=== PATIENT | female | born 1965 | race Hispanic/Latino ===

== ENCOUNTER 2023-05-29 06:11 | Day surgery (SDC) | payer MEDICARE ==
[2023-05-28 09:55] LABS: Potassium 5.3 mEq/L (3.5-5.1)
--- NOTE | 2023-05-28 17:00 | EKG ---
Test Date: 2023-05-28 Test Time: 08:54:35 Rn Home Health: [facility] MEASUREMENT RESULTS: Intervals: Rate: 73 NC: 188 QRSD: 138 QT: 452 QTc: 497 [place]: P: 65 NC: 188 QRS: -34 T: 90 INTERPRETIVE STATEMENTS: Normal sinus rhythm Left axis deviation Right bundle branch block Abnormal ECG No previous ECG available for comparison Electronically Signed On 05-28-23 16:59:57 CDT by Barber Castillo
[2023-05-29] MEDS ORDERED: NA CHLORIDE 0.9% 500 ML ONE ×2 (06:50→07:35)
[2023-05-29] MEDS ORDERED: BUPIVACAINE 0.25% PF 30 ML VIAL ONE (07:09)
[2023-05-29] MEDS ORDERED: propofoL 200 MG/20 ML VIAL IV ONE ×2 (07:15→08:07)
[2023-05-29] MEDS ORDERED: MIDAZOLAM HCL 2 MG/2 ML INJ ONE (07:15)
[2023-05-29] MEDS ORDERED: LIDOCAINE 2% MPF 5 ML VIAL ONE (07:15)
[2023-05-29] MEDS ORDERED: FENTANYL CITR 100 MCG/2 ML ONE (07:15)
[2023-05-29] MEDS ORDERED: LIDOCAINE HCL/EPINEPHRINE 20 ML MDV ONE (07:21)
--- NOTE | 2023-05-29 08:08 | P.OP ---
Preoperative diagnosis: Removal of Tunnelled RIGHT IJ HD Catheter Postoperative diagnosis: Removal of Tunnelled RIGHT IJ HD Catheter Primary procedure: Removal of Tunnelled RIGHT IJ HD Catheter Anesthesia: MAC + Local Estimated blood loss: <5cc Specimen: Cath for ID only Findings: Tunneled RIGHT IJ HD cath Complications: None Transferred to: Recovery Room Condition: Good
[2023-05-29 09:42] VITALS: TEMP 97.8; O2SAT 100
[2023-05-29 09:44] VITALS: BP 170/63
--- NOTE | 2023-05-29 12:54 | OP ---
Date of Procedure: 05/29/2023 Surgeon: Lul Calvin MD, Preoperative Diagnosis: Removal of tunneled hemodialysis catheter. Postoperative Diagnosis: Removal of tunneled hemodialysis catheter. Procedure Performed: Removal of tunneled right internal jugular tunneled hemodialysis catheter. Anesthesia: MAC plus local with 0.25% Marcaine. Estimated Blood Loss: Less than 5 cc. Specimen: Catheter for ID only. Findings: Tunneled right internal jugular hemodialysis catheter noted. Complications: None. Disposition: The patient was transferred to the recovery room in good condition. Procedure In Detail: After informed consent was obtained, the patient was brought to the operating r oom, prepped and draped in the usual sterile fashion after adequate anesthesia was achieved. The pat ient was placed in steep Trendelenburg position. I removed the previously placed stitches on the rig ht chest wall without incident or complication. I then tunneled around the insertion site of a right internal jugular tunneled hemodialysis catheter, which was in the infraclavicular position _ site. I brought the cuff into view and circumferentially dissected the cuff free from the surround ing tissues using a combination of electrocautery, sharp dissection, and blunt dissection. The chikis ter was then held pressure at both the insertion site and removal site, and the catheter was removed, sent off for ID at this point. The patient was then positioned in the head up position. The area w as copiously irrigated and closed with interrupted 3-0 nylon sutures and a sterile dressing placed ov er top. The patient tolerated the procedure well without evidence of complication and transferred to PACU in good condition. All counts were correct at the end of the case. MELVIN/DAY Voice ID: [id number] Report ID: [id number]
== END 2023-05-29 08:45 | disposition home or self-care (01) ==
LOC: OR 06:11
PROVIDERS: ATTEND Surgery
PROC: 0WPG03Z Removal of Infusion Device from Peritoneal Cavity, Open Approach (ICD-10-PCS; principal; 2023-05-29 08:00)
DX: Z45.2 Encounter for adjustment and management of vascular access device (principal)
CPT/HCPCS: 93005; 80048; 36415; 82947; 88300; 36590; J2704 ×2; J2001; J2250; J7040 ×2; J3010

== ENCOUNTER → 2023-11-14 | Emergency (ER) | payer OTHER ==
[~2023-11-14] MED LIST: ACETAMINOPHEN 500 MG TAB ONE; ASPIRIN 81 MG CHEWABLE TABLET ONE; BISACODYL 10 MG RECTAL SUPP ONE; LACTULOSE 20 GM/30 ML UCUP ONE; MORPHINE 4 MG/ML SYR ONE; NA CHLORIDE 0.9% 1,000 ML ONE; ONDANSETRON 4 MG/2 ML VIAL ONE; PROMETHAZINE INJ 25 MG/ML AMP ONE; cloNIDine HCL 0.1 MG TAB ONE
[2023-11-14 17:46] LABS: Absolute Lymphocytes (CBC) 2.4 K/uL (0.7-4.9); Hematocrit 41.1 % (36.0-45.0); Lymphocytes % 21.6 % (15.3-44.8); MCV 95.3 fL (80-100); MPV 9.5 fL (7.6-11.3); Platelets 290 thou/uL (152-406); RBC Red Blood Cell Count 4.31 M/uL (3.86-4.86)
[2023-11-14 18:06] LABS: Protime INR 1.05
[2023-11-14 18:35] LABS: Albumin 2.8 g/dL (3.4-5.0); Bilirubin Direct 0.2 mg/dL (0-0.2); Bilirubin Indirect, Calculated 0.2 mg/dL (0.2-0.8); Bilirubin Total 0.4 mg/dL (0.2-1.0); Magnesium 1.6 mg/dL (1.6-2.4); Potassium 4.3 mEq/L (3.5-5.1); Protein, Total 7.6 g/dL (6.4-8.2); Troponin High Sensitivity 13.2 pg/mL (<58.9)
[2023-11-14 18:38] LABS: SARS-CoV-2 Antigen Rapid Res Negative (Negative)
--- NOTE | 2023-11-14 19:11 | RAD REPORT ---
EXAM DESCRIPTION: Camryn Single View11/14/2023 6:06 pm CLINICAL HISTORY: Chest pain;Abdominal distention COMPARISON: No comparisons TECHNIQUE: Portable AP view of the chest. FINDINGS: The lungs are clear. No pneumothorax or effusion. The cardiomediastinal contours are unre markable. IMPRESSION: No acute cardiopulmonary process.
--- NOTE | 2023-11-14 20:38 | RAD REPORT ---
EXAM DESCRIPTION: CT - Abdomen Pelvis Wo Contrast - 11/14/2023 8:02 pm CLINICAL HISTORY: ABD PAIN COMPARISON: No comparisons TECHNIQUE: Thin cut axial CT imaging of the abdomen and pelvis was performed without IV contrast. Mu ltiplanar reformats were generated and reviewed. All CT scans are performed using dose optimization technique as appropriate and may include automated exposure control or mA/KV adjustment according to patient size. FINDINGS: No suspicious findings in the lung bases. The liver, spleen, adrenal glands, and pancreas show no suspicious findings. Gallbladder was surgical ly removed. Symmetric renal contour, without suspicious parenchymal findings within limits of noncontrast techniq ue. No evidence of radiopaque calculi or hydroureteronephrosis. No dilated bowel loops or bowel wall thickening. No free air, free fluid or inflammatory stranding. N o hernia, mass or bulky lymphadenopathy. Peritoneal dialysis catheter in place. The urinary bladder i s without significant finding. No suspicious bony findings. IMPRESSION: No acute intra-abdominal process.
--- NOTE | 2023-11-14 21:56 | ER ---
Nurse's Notes [facility] Name: Debbie Ramos Age: 58 yrs Sex: Female : 1965 Arrival Date: 11/14/2023 Time: 17:05 Bed 13 Private MD: Talya Espinosa Atiq Diagnosis: Nausea with vomiting, unspecified;Constipation Presentation: 11/14 17:10 Chief complaint: Patient states: BODY ACHES, SOB, CHEST PAIN SINCE LAST NIGHT. db CONSTIPATION X 10 DAYS, STATES TRIED LACTULOSE. LAST DIALYSIS WAS LAST NIGHT. Coronavirus screen: Client denies travel out of the [place] in the last 14 days. At this time, the client does not indicate any symptoms associated with coronavirus-19. Ebola Screen: Patient negative for fever greater than or equal to 101.5 degrees Fahrenheit, and additional compatible Ebola Virus Disease symptoms Patient denies exposure to infectious person. Patient denies travel to an Ebola-affected area in the 21 days before illness onset. No symptoms or risks identified at this time. Initial Sepsis Screen: Does the patient meet any 2 criteria? No. Patient's initial sepsis screen is negative. Does the patient have a suspected source of infection? No. Patient's initial sepsis screen is negative. Risk Assessment: Do you want to hurt yourself or someone else? Patient reports no desire to harm self or others. Onset of symptoms was November 14, 2023. 17:10 Method Of Arrival: Wheelchair db 17:10 Acuity: AHMET 2 db Triage Assessment: 17:13 General: Appears in no apparent distress. uncomfortable, Behavior is calm, cooperative. db Pain: Complains of pain in chest. Neuro: Level of Consciousness is awake, alert, obeys commands, Oriented to person, place, time, situation. Cardiovascular: Dialysis shunt:. Cardiovascular: Reports chest pain. Respiratory: Reports shortness of breath Airway is patent Respiratory effort is even, unlabored, Respiratory pattern is regular, symmetrical. GI:. Historical: - Allergies: 17:14 PENICILLINS; db 17:14 Toradol; db 17:14 HUMALIN; db 17:14 Humalog; db - PMHx: 17:13 DIALYSIS; db 17:15 Diabetes mellitus; db - Immunization history:: Adult Immunizations unknown. - Social history:: Smoking status: Patient denies any tobacco usage or history of. Screenin:16 [facility] ED Fall Risk Assessment (Adult) History of falling in the last 3 months, mb9 including since admission No falls in past 3 months (0 pts) Confusion or Disorientation No (0 pts) Intoxicated or Sedated No (0 pts) Impaired Gait No (0 pts) Mobility Assist Device Used No (0 pt) Altered Elimination No (0 pt) Score/Fall Risk Level 0 - 2 = Low Risk Oriented to surroundings, Maintained a safe environment, Educated pt \T\ family on fall prevention, incl call for assistance when getting out of bed. Abuse screen: Denies threats or abuse. Nutritional screening: No deficits noted. Tuberculosis screening: No symptoms or risk factors identified. Assessment: 17:46 General: Appears in no apparent distress. Behavior is calm, cooperative. Pain: mb9 Complains of pain in chest and abdomen. Neuro: Leung Agitation-Sedation Scale (RASS): 0 - Alert and Calm Level of Consciousness is awake, alert, obeys commands, Oriented to person, place, time, situation, Appropriate for age. Cardiovascular: Reports chest pain, shortness of breath, Heart tones S1 S2 present Patient's skin is warm and dry. Respiratory: Airway is patent Respiratory effort is even, unlabored, Respiratory pattern is regular, symmetrical, Breath sounds are clear bilaterally. GI: Abdomen is obese, Bowel sounds present X 4 quads. Abd is soft and non tender X 4 quads. Reports constipation, nausea. : No signs and/or symptoms were reported regarding the genitourinary system. EENT: No signs and/or symptoms were reported regarding the EENT system. Derm: Skin is pink, warm \T\ dry. Musculoskeletal: Range of motion: intact in all extremities. 18:26 Reassessment: pt finished oral contrast. CT notified. mb9 19:05 Reassessment: ASSUMED CARE OF PT. PT LYING IN BED. NO DISTRESS NOTED. C/O ALL OVER BODY jj7 ACHES. ORDERED MEDS GIVEN. FAMILY AT BEDSIDE. CALL ROBLES IN REACH. NO NEEDS AT THIS TIME. 21:55 Reassessment: PT STATES SHE HAD A BM ON HERSELF. PT HELPED UP TO RESTROOM TO CLEAN jj7 HERSELF UP. IN RESTROOM ASSISTING. Vital Signs: 17:10 BP 157 / 107; Pulse 101; Resp 18; Temp 98.6; Pulse Ox 100% ; Weight 111.13 kg; Height 5 db ft. 6 in. ; 18:28 BP 166 / 89; Pulse 96; Resp 18; Pulse Ox 100% on R/A; mb9 19:05 BP 184 / 79; Pulse 90; Resp 17; Pulse Ox 100% ; jj7 20:23 BP 134 / 68; Pulse 93; Resp 17; Pulse Ox 100% ; jj7 21:00 BP 106 / 72; Pulse 65; Resp 18; Pulse Ox 100% ; jj7 22:00 BP 111 / 68; Pulse 70; Resp 20; Pulse Ox 99% ; jj7 22:24 BP 117 / 76; Pulse 73; Resp 20; Pulse Ox 99% ; jj7 17:10 Body Mass Index 39.54 (111.13 kg, 167.64 cm) db NIH Stroke Scale Scores: 17:24 NIHSS Score: 0 [facility] ED Course: 17:06 Patient arrived in ED. rg4 17:06 Talya Espinosa MD is Private Physician. rg4 17:08 Yony Corona MD is Attending Physician. tien 17:12 Triage completed. db 17:13 Arm band placed on right wrist. Patient placed in an exam room. db 17:16 Nanci Shi RN is Primary Nurse. mb9 17:16 Placed in gown. Bed in low position. Call light in reach. Side rails up X 1. Client mb9 placed on continuous cardiac and pulse oximetry monitoring. NIBP monitoring applied. 17:30 EKG done, by ED staff, reviewed by Yony Corona MD. mb9 17:30 Missed attempt(s): 22 gauge in left antecubital area. Bleeding controlled, band aid mb9 applied, catheter tip intact. 17:48 Basic Metabolic Panel Sent. mb9 17:48 CBC with Diff Sent. mb9 17:48 LFT's Sent. mb9 17:48 Magnesium Sent. mb9 17:48 NT PRO-BNP Sent. mb9 17:48 PT-INR Sent. mb9 17:48 Troponin HS Sent. mb9 17:48 Lipase Sent. mb9 17:50 Diana Crum [facility]-C [facility]. sb4 18:00 Inserted saline lock: 20 gauge in right antecubital area, using aseptic technique. mb9 ,using aseptic technique. done by JIAN Rahman. 18:08 XRAY Chest (1 view) In Process Unspecified. EDMS 18:14 SARS RAPID Sent. mb9 18:14 Flu Sent. mb9 18:20 Missed attempt(s): 24 gauge in left hand. Bleeding controlled, band aid applied, mb9 catheter tip intact. 20:04 Abdomen In Process Unspecified. EDMS 21:56 Talya Espinosa MD is Referral Physician. sb4 22:45 No provider procedures requiring assistance completed. IV discontinued, intact, jj7 bleeding controlled, No redness/swelling at site. Pressure dressing applied. Administered Medications: 18:00 Drug: NS 0.9% IV 1000 ml IV at 125 ml/hr continuous Route: IV; Rate: 125 ml/hr; Site: mb9 right antecubital; 21:00 Follow up: IV Status: IV infiltrated jj7 18:05 Drug: Ondansetron IVP 4 mg IVP once; over 2 minutes Route: IVP; Site: right antecubital;mb9 18:28 Follow up: Response: No adverse reaction mb9 18:10 Drug: morphine IVP or IV 4 mg IVP once over 4 mins Route: IVP; Infused Over: 4 mins; mb9 Site: right antecubital; 18:28 Follow up: Response: No adverse reaction mb9 18:14 Drug: Dulcolax ME Suppository 10 mg ME once Route: ME; mb9 18:28 Follow up: Response: No adverse reaction mb9 18:14 Drug: Lactulose PO 30 grams 45 ml PO once Volume: 45 ml; Route: PO; mb9 18:28 Follow up: Response: No adverse reaction mb9 18:14 Drug: Aspirin PO Chewable Tablet 81 mg PO once Route: PO; mb9 18:28 Follow up: Response: No adverse reaction mb9 19:14 Drug: cloNIDine PO 0.2 mg PO once Route: PO; jj7 20:41 Follow up: Response: Blood pressure is lowered jj7 20:37 Drug: Acetaminophen PO 1000 mg PO once Route: PO; jj7 22:15 Follow up: Response: Pain is decreased jj7 22:53 Follow up: Response: Pain is decreased jj7 22:15 Drug: Promethazine IM 25 mg IM once Route: IM; Site: left deltoid; jj7 22:53 Follow up: Response: Nausea is decreased jj7 Medication: 17:17 VIS not applicable for this client. mb9 Outcome: 21:56 Discharge ordered by . power 22:45 Discharged to home via wheelchair, with significant other, [email or web address] 22:45 Condition: good 22:45 Discharge instructions given to patient, family, Instructed on discharge instructions, follow up and referral plans. medication usage, Demonstrated understanding of instructions, follow-up care, medications, Prescriptions given X 1, 22:59 Patient left the ED. jj7 NIH Stroke Scale - NIH Stroke Score Date: 11/14/2023 Time: 17:24 Total Score = 0 10. Dysarthria (speech clarity - read or repeat words) - 0(Normal) 11. Extinction and Inattention (visual/tactile/auditory/spatial/personal) - 0(No abnormality) 1a. Level of Consciousness (LOC) - 0(Alert) 1b. Level of Consciousness (LOC) (Month \T\ Age) - 0(Both) 1c. LOC Commands (Open \T\ Closes Eyes/Aircraft Fueler) - 0(Both) 2. Best Gaze (Lateral Gaze Paresis) - 0(Normal) 3. Visual Field Loss - 0(No visual loss) 4. Facial Palsy - 0(Normal) 5a. Left Arm: Motor (10-second hold) - 0(No drift) 5b. Right Arm: Motor (10-second hold) - 0(No drift) 6a. Left Leg: Motor (5-second hold - always test supine) - 0(No drift) 6b. Right Leg: Motor (5-second hold - always test supine) - 0(No drift) 7. Limb Ataxia (finger/nose \T\ heel/saunders - test with eyes open) - 0(Absent) 8. Sensory Loss (pinprick arms/legs/face) - 0(Normal) 9. Best Language: Aphasia (description/naming/reading) - 0(No aphasia) Initials: tien Signatures: Dispatcher [employer] EDYony Wu MD MD cha Garcia, Rubi rg4 Tamia Clark RN RN jj7 Chani Rojas RN RN Diana Galindo, PA-C PA-C [email or web address] Nanci Shi RN RN mb9 Corrections: (The following items were deleted from the chart) 17:13 17:10 Pulse 101bpm; Resp 18bpm; Pulse Ox 100%; Temp 98.6F; 111.13 kg; Height 5 db ft. 6 in.; BMI: 39.5; db 20:42 20:41 BP 134 / 68; Pulse 93bpm; Resp 17bpm; Pulse Ox 100%; jj7 jj7
--- NOTE | 2023-11-14 21:56 | EDPHYS ---
Physician Documentation [facility] Name: Debbie Ramos Age: 58 yrs Sex: Female : 1965 Arrival Date: 11/14/2023 Time: 17:05 Bed 13 Private MD: Talya Espinosa Atiq ED Physician Yony Corona HPI: 11/14 17:16 This 58 yrs old Female presents to ER via Wheelchair with complaints of tien Constipation, Nausea, Chest Pain. 17:16 The patient presents to the emergency department with nausea, vomiting, that is tien continuous. Onset: The symptoms/episode began/occurred yesterday. Possible causes: unknown. The symptoms are aggravated by nothing. The symptoms are alleviated by nothing. Historical: - Allergies: 17:14 PENICILLINS; db 17:14 Toradol; db 17:14 HUMALIN; db 17:14 Humalog; db - PMHx: 17:13 DIALYSIS; db 17:15 Diabetes mellitus; db - Immunization history:: Adult Immunizations unknown. - Social history:: Smoking status: Patient denies any tobacco usage or history of. ROS: 17:24 Constitutional: Negative for fever, chills, and weight loss, Eyes: Negative for injury, tien pain, redness, and discharge, ENT: Negative for injury, pain, and discharge, Neck: Negative for injury, pain, and swelling, Respiratory: Negative for shortness of breath, cough, wheezing, and pleuritic chest pain, Back: Negative for injury and pain, : Negative for injury, bleeding, discharge, and swelling, MS/Extremity: Negative for injury and deformity, Skin: Negative for injury, rash, and discoloration, Neuro: Negative for headache, weakness, numbness, tingling, and seizure, Psych: Negative for depression, anxiety, suicide ideation, homicidal ideation, and hallucinations, Allergy/Immunology: Negative for hives, rash, and allergies, Endocrine: Negative for neck swelling, polydipsia, polyuria, polyphagia, and marked weight changes, Hematologic/Lymphatic: Negative for swollen nodes, abnormal bleeding, and unusual bruising, 17:24 Cardiovascular: Positive for chest pain, 17:24 Abdomen/GI: Positive for abdominal pain, constipation, Exam: 17:24 Constitutional: This is a well developed, well nourished patient who is awake, alert, tien and in no acute distress. Head/Face: Normocephalic, atraumatic. Eyes: Pupils equal round and reactive to light, extra-ocular motions intact. Lids and lashes normal. Conjunctiva and sclera are non-icteric and not injected. Cornea within normal limits. Periorbital areas with no swelling, redness, or edema. ENT: Nares patent. No nasal discharge, no septal abnormalities noted. Tympanic membranes are normal and external auditory canals are clear. Oropharynx with no redness, swelling, or masses, exudates, or evidence of obstruction, uvula midline. Mucous membranes moist. Neck: Trachea midline, no thyromegaly or masses palpated, and no cervical lymphadenopathy. Supple, full range of motion without nuchal rigidity, or vertebral point tenderness. No Meningismus. Chest/axilla: Normal chest wall appearance and motion. Nontender with no deformity. No lesions are appreciated. Cardiovascular: Regular rate and rhythm with a normal S1 and S2. No gallops, murmurs, or rubs. Normal PMI, no JVD. No pulse deficits. Respiratory: Lungs have equal breath sounds bilaterally, clear to auscultation and percussion. No rales, rhonchi or wheezes noted. No increased work of breathing, no retractions or nasal flaring. Abdomen/GI: Soft, non-tender, with normal bowel sounds. No distension or tympany. No guarding or rebound. No evidence of tenderness throughout. Back: No spinal tenderness. No costovertebral tenderness. Full range of motion. Skin: Warm, dry with normal turgor. Normal color with no rashes, no lesions, and no evidence of cellulitis. MS/ Extremity: Pulses equal, no cyanosis. Neurovascular intact. Full, normal range of motion. Neuro: Awake and alert, GCS 15, oriented to person, place, time, and situation. Cranial nerves II-XII grossly intact. Motor strength 5/5 in all extremities. Sensory grossly intact. Cerebellar exam normal. Normal gait. Psych: Awake, alert, with orientation to person, place and time. Behavior, mood, and affect are within normal limits. 17:24 Musculoskeletal/extremity: Circulation is intact in all extremities. Sensation intact. Compartment Syndrome exam of affected extremity: is normal. DVT Exam: No signs of deep vein thrombosis. no pain, no swelling, no tenderness, negative Homans' sign noted on exam, no appreciated bluish discoloration, no erythema, no increased warmth, 17:24 Neuro: Exam negative for acute changes, Orientation: is normal, appropriate for stated age, no acute changes, Mentation: is normal, appropriate for stated age, no acute changes, Memory: is normal, appropriate for stated age, no acute changes, Cranial nerves: grossly normal, is grossly normal based on the patient's age, no acute changes, Cerebellar function: is grossly normal, is grossly normal based on the patient's age, no acute changes, Gait: not tested. Babinski testing is normal, 17:48 ECG was reviewed by the Attending Physician. [facility] Vital Signs: 17:10 BP 157 / 107; Pulse 101; Resp 18; Temp 98.6; Pulse Ox 100% ; Weight 111.13 kg; Height 5 db ft. 6 in. ; 18:28 BP 166 / 89; Pulse 96; Resp 18; Pulse Ox 100% on R/A; mb9 19:05 BP 184 / 79; Pulse 90; Resp 17; Pulse Ox 100% ; jj7 20:23 BP 134 / 68; Pulse 93; Resp 17; Pulse Ox 100% ; jj7 21:00 BP 106 / 72; Pulse 65; Resp 18; Pulse Ox 100% ; jj7 22:00 BP 111 / 68; Pulse 70; Resp 20; Pulse Ox 99% ; jj7 22:24 BP 117 / 76; Pulse 73; Resp 20; Pulse Ox 99% ; jj7 17:10 Body Mass Index 39.54 (111.13 kg, 167.64 cm) db NIH Stroke Scale Scores: 17:24 NIHSS Score: 0 tien MDM: 17:09 Patient medically screened. tien 17:27 Differential diagnosis: abnormal EKG, acute myocardial infarction, acute pericarditis, tien anxiety, coronary artery disease chest wall pain, Cholelithiasis Nonspecific abd pain, pancreatitis, viral gastroenteritis, gastroenteritis, gastritis, gastroesophageal reflux disease (GERD), peptic ulcer disease, pneumonia, stable angina. Differential Diagnosis flu. HEART Score: History: Slightly Suspicious (0), ECG: Age: > 45 and < 65 years (1), Risk Factors: > or = 3 Risk factors for atherosclerotic disease (2), [Hypertension] [+ Family HX] [Obesity]. The patient was given aspirin in the Emergency Department. SHIRLENE Risk Score: 1 - Three or more CAD risk factors, TOTAL SCORE = 1. Data reviewed: vital signs, nurses notes, lab test result(s), EKG, radiologic studies, CT scan, plain films. Consideration of Admission/Observation Escalation of care including admission/observation considered. I considered the following discharge prescriptions or medication management in the emergency department Medications were administered in the Emergency Department. See MAR. Test considered but Not performed: Ultrasound no abd usg. Care significantly affected by the following chronic conditions: Diabetes, Obesity. Counseling: I had a detailed discussion with the patient and/or guardian regarding the historical points, exam findings, and any diagnostic results supporting the discharge/admit diagnosis, lab results, radiology results. 11/14 17:24 Order name: Basic Metabolic Panel; Complete Time: 18:39 tien 11/14 17:24 Order name: CBC with Diff; Complete Time: 17:50 [facility] 11/14 17:24 Order name: LFT's; Complete Time: 18:39 tien 11/14 17:24 Order name: Magnesium; Complete Time: 18:39 [facility] 11/14 17:24 Order name: NT PRO-BNP; Complete Time: 18:39 tien 11/14 17:24 Order name: PT-INR; Complete Time: 18:12 tien 11/14 17:24 Order name: Troponin HS; Complete Time: 18:39 tien 11/14 17:24 Order name: Lipase; Complete Time: 18:39 tien 11/14 17:24 Order name: Flu; Complete Time: 18:46 tien 11/14 17:24 Order name: SARS RAPID; Complete Time: 18:39 [facility] 11/14 17:24 Order name: XRAY Chest (1 view); Complete Time: 19:20 tien 11/14 19:48 Order name: Abdomen ; Complete Time: 20:38 EDND 11/14 17:24 Order name: EKG; Complete Time: 17:25 tien 11/14 17:24 Order name: Cardiac monitoring; Complete Time: 17:48 tien 11/14 17:24 Order name: EKG - Nurse/Tech; Complete Time: 17:48 tien 11/14 17:24 Order name: IV Saline Lock; Complete Time: 17:48 tien 11/14 17:24 Order name: Labs collected and sent; Complete Time: 17:48 tien 11/14 17:24 Order name: O2 Per Protocol; Complete Time: 17:48 tien 11/14 17:24 Order name: O2 Sat Monitoring; Complete Time: 17:48 tien 11/14 21:51 Order name: PO challenge; Complete Time: 22:53 sb4 EC:48 Rate is 96 beats/min. Rhythm is regular. QRS [place] is Normal. MO interval is normal. QRS tien interval is normal. QT interval is normal. No Q waves. T waves are Normal. Clinical impression: Abnormal EKG without significant change and No evidence of ischemia. Interpreted by me. Reviewed by me. Administered Medications: 18:00 Drug: NS 0.9% IV 1000 ml IV at 125 ml/hr continuous Route: IV; Rate: 125 ml/hr; Site: mb9 right antecubital; 21:00 Follow up: IV Status: IV infiltrated jj7 18:05 Drug: Ondansetron IVP 4 mg IVP once; over 2 minutes Route: IVP; Site: right antecubital;mb9 18:28 Follow up: Response: No adverse reaction mb9 18:10 Drug: morphine IVP or IV 4 mg IVP once over 4 mins Route: IVP; Infused Over: 4 mins; mb9 Site: right antecubital; 18:28 Follow up: Response: No adverse reaction mb9 18:14 Drug: Dulcolax MO Suppository 10 mg MO once Route: MO; mb9 18:28 Follow up: Response: No adverse reaction mb9 18:14 Drug: Lactulose PO 30 grams 45 ml PO once Volume: 45 ml; Route: PO; mb9 18:28 Follow up: Response: No adverse reaction mb9 18:14 Drug: Aspirin PO Chewable Tablet 81 mg PO once Route: PO; mb9 18:28 Follow up: Response: No adverse reaction mb9 19:14 Drug: cloNIDine PO 0.2 mg PO once Route: PO; jj7 20:41 Follow up: Response: Blood pressure is lowered jj7 20:37 Drug: Acetaminophen PO 1000 mg PO once Route: PO; jj7 22:15 Follow up: Response: Pain is decreased jj7 22:53 Follow up: Response: Pain is decreased jj7 22:15 Drug: Promethazine IM 25 mg IM once Route: IM; Site: left deltoid; jj7 22:53 Follow up: Response: Nausea is decreased jj7 Disposition Summary: 11/14/23 21:56 Discharge Ordered Notes: Location: Home sb4 Problem: an ongoing problem sb4 Symptoms: are unchanged sb4 Condition: Stable sb4 Diagnosis - Nausea with vomiting, unspecified sb4 - Constipation sb4 Followup: sb4 - With: Talya Espinosa MD - When: As needed - Reason: Recheck today's complaints, Re-evaluation by your physician Discharge Instructions: - Discharge Summary Sheet sb4 - Nausea and Vomiting, Adult sb4 - Constipation, Adult, [id number] sb4 Forms: - Medication Reconciliation Form sb4 - Thank You Letter sb4 - Antibiotic Education sb4 - Prescription Opioid Use sb4 - Patient Portal Instructions sb4 - Leadership Thank You Letter sb4 Prescriptions: - ondansetron 8 mg Oral Tablet,disintegrating - take 1 tablet ORAL route every 12 hours; 10 tablet; Refills: 0, Product sb4 Selection Permitted NIH Stroke Scale - NIH Stroke Score Date: 11/14/2023 Time: 17:24 Total Score = 0 10. Dysarthria (speech clarity - read or repeat words) - 0(Normal) 11. Extinction and Inattention (visual/tactile/auditory/spatial/personal) - 0(No abnormality) 1a. Level of Consciousness (LOC) - 0(Alert) 1b. Level of Consciousness (LOC) (Month \T\ Age) - 0(Both) 1c. LOC Commands (Open \T\ Closes Eyes/Deputy [employer]) - 0(Both) 2. Best Gaze (Lateral Gaze Paresis) - 0(Normal) 3. Visual Field Loss - 0(No visual loss) 4. Facial Palsy - 0(Normal) 5a. Left Arm: Motor (10-second hold) - 0(No drift) 5b. Right Arm: Motor (10-second hold) - 0(No drift) 6a. Left Leg: Motor (5-second hold - always test supine) - 0(No drift) 6b. Right Leg: Motor (5-second hold - always test supine) - 0(No drift) 7. Limb Ataxia (finger/nose \T\ heel/saunders - test with eyes open) - 0(Absent) 8. Sensory Loss (pinprick arms/legs/face) - 0(Normal) 9. Best Language: Aphasia (description/naming/reading) - 0(No aphasia) Initials: tien Signatures: Dispatcher [employer] EDMS Yony Corona MD MD cha Johnson, Juwairiyah RN RN jj7 Chani Rojas RN RN Diana Galindo PA-C PA-C sb4 Nanci Shi RN RN mb9 Corrections: (The following items were deleted from the chart) 19:48 17:25 Abdomen Pelvis W [id number].[id number] ordered. EDMS EDMS
[2023-11-14 23:54] VITALS: TEMP 98.6
[2023-11-15 00:19] VITALS: O2SAT 99
[2023-11-15 00:39] VITALS: BP 117/76
--- NOTE | 2023-11-18 15:13 | EKG ---
Test Date: 2023-11-14 Test Time: 17:33:07 Machine Adjuster Leader Case Trim: NAFISA MEASUREMENT RESULTS: Intervals: Rate: 96 GA: 186 QRSD: 140 QT: 426 QTc: 538 Marcus: P: 59 GA: 186 QRS: -51 T: 44 INTERPRETIVE STATEMENTS: Normal sinus rhythm Left axis deviation Right bundle branch block Abnormal ECG Compared to ECG 05/28/2023 08:54:35 No significant changes Electronically Signed On 11-18-23 15:03:15 RETURNED TELEPHONE EQUIPMENT APPRAISER by Barber Castillo
== END ==
LOC: ER 17:05
DX: R11.2 Nausea with vomiting, unspecified (principal); K59.00 Constipation, unspecified; E11.9 Type 2 diabetes mellitus without complications; Z99.2 Dependence on renal dialysis; Z11.52 Encounter for screening for COVID-19; Z88.0 Allergy status to penicillin; Z88.5 Allergy status to narcotic agent; Z88.8 Allergy status to other drugs, medicaments and biological substances
CPT/HCPCS: 93005; 85025; 80048; 36415; 83735; 85610; 80076; 84484; 83690; 83880; 87804 ×2; 74176; 71045; 87811; J2550; J2405; J7030